=== PATIENT | male | born 1950 | race Caucasian/White ===

== ENCOUNTER 2019-09-16 12:38 | Day surgery (SDC) | payer MEDICARE ==
[~2019-09-16] VITALS: Ht 167.6 cm; Wt 67.4 kg
[~2019-09-16 12:38] MED LIST: CEPH500 PO; Daily Multiple1 EACH PO; HYDACE5 PO
[2019-09-16] MEDS ORDERED: ALLEGRA ALLERG180 MG (13:32)
--- NOTE | 2019-09-16 14:29 | NUR ---
09/16/19 1429 Fang Chaudhari INJECTED 20 MLS OF INDIGO CARMINE W/ NS PER DR ORDER FOR TWO POLYPECTOMIES.
== END 2019-09-16 16:00 | disposition home or self-care (01) ==
LOC: ORSCSDS 12:38
PROVIDERS: Student in an Organized Health Care Education/Training Program
PROC: 0DBK8ZX Excision of Ascending Colon, Via Natural or Artificial Opening Endoscopic, Diagnostic (ICD-10-PCS; principal; 2019-09-16 15:00)
PROC: 0DBH8ZX Excision of Cecum, Via Natural or Artificial Opening Endoscopic, Diagnostic (ICD-10-PCS; principal; 2019-09-16 15:00)
DX: Z12.11 Encounter for screening for malignant neoplasm of colon (principal); D12.0 Benign neoplasm of cecum; D12.2 Benign neoplasm of ascending colon; I10 Essential (primary) hypertension; E11.9 Type 2 diabetes mellitus without complications
CPT/HCPCS: 82947; 88305; J2405; J2704; J7030; J7120

== ENCOUNTER 2020-08-26 10:32 | Emergency (ER) | payer MEDICARE ==
[~2020-08-26] VITALS: Ht 167.6 cm; Wt 66.2 kg
[~2020-08-26 10:32] MED LIST changes: +ALLEGRA ALLERG180 MG; +LOSA50 PO
== END 2020-08-26 13:17 | disposition home or self-care (01) ==
LOC: ER 10:32
DX: U07.1 COVID-19 (principal); R50.9 Fever, unspecified; I10 Essential (primary) hypertension; Z88.2 Allergy status to sulfonamides; Z79.899 Other long term (current) drug therapy
CPT/HCPCS: 99282; A9270

== ENCOUNTER 2020-08-28 17:24 | Inpatient (IN) | payer MEDICARE ==
[~2020-08-28] VITALS: Ht 167.6 cm; Wt 71.5 kg
--- NOTE | 2020-08-28 | NUR ---
PT ADMITTED TO ROOM ICU 10 AT 2250 FROM ED. PT SLIDE TRANSFERRED TO BED. OXYGEN ON AT 8 LITERS PER MINUTE, AND AFTER PT SETTLED INTO BED, NOTED SATURATIONS MID 70 PERCENT. RESPIRATORY CARE PLACES PT TO BIPAP 12/6 FIO2 85 PERCENT. THIS BRINGS OXYGEN SATURATION > 90 PERCENT. PT MAINTAINS RESPIRATORY RATES 30'S TO 40'S. HE DOES STATE THAT HE IS FEELING BETTER WITH BIPAP. PT GOOD HISTORIAN. TEACHING DONE CONCERNING COVID 19. WILL REVIEW CHART AND PLAN OF CARE FOR THIS PT.
[2020-08-28 18:27] LABS: BASOPHILS ABSOLUTE AUTO 0.06 K/mm3 (0.00-0.23); BASOPHILS PERCENT AUTO 0 % (0-2); EOSINOPHILS ABSOLUTE AUTO 0.03 K/mm3 (0.00-0.68); EOSINOPHILS PERCENT AUTO 0 % (0-6); Hematocrit 43.3 % (37.0-53.0); Hemoglobin 14.9 g/dL (13.5-17.5); IMMATURE GRAN ABSOLUTE AUTO 0.18 K/mm3 (0.00-0.10); IMMATURE GRAN PERCENT AUTO 1 % (0-1); LYMPHOCYTES PERCENT AUTO 5 % (21-46); MONOCYTES ABSOLUTE AUTO 0.31 K/mm3 (0.16-1.47); MONOCYTES PERCENT AUTO 2 % (4-13); Mean Corpuscular HGB 29.3 pg (26.0-34.0); Mean Corpuscular HGB Conc 34.4 g/dL (31.5-36.5); Mean Corpuscular Volume 85 fL (80-100); Mean Platelet Volume 10.2 fL (9.1-12.4); NEUTROPHILS ABSOLUTE AUTO 13.43 K/mm3 (1.96-9.15); NEUTROPHILS PERCENT AUTO 91 % (41-73); Platelet Count 251 K/mm3 (150-400); RDW Coefficient Variation 12.7 % (11.7-14.2); RDW Standard Deviation 39.7 fL (35.1-46.3); Red Blood Cell Count 5.09 M/mm3 (4.30-5.90); White Blood Cell Count 14.81 K/mm3 (4.00-11.30)
[2020-08-28 18:49] LABS: Albumin, Blood 2.4 g/dL (3.4-5.0); Albumin/Globulin Ratio 0.5 (0.8-1.8); Bilirubin, Total 0.6 mg/dL (0.1-1.0); Bun/Creatinine Ratio 24.4 (12.0-20.0); Calcium, Blood 8.9 mg/dL (8.5-10.1); Creatinine, Blood 1.27 mg/dL (0.60-1.20); Globulin, Blood 4.6 g/dL (2.2-4.0); Potassium, Blood 3.3 mmol/L (3.5-5.5)
[2020-08-28 19:56] LABS: International Normalized Ratio 1.04; Prothrombin Time Results 11.1 Sec (9.7-11.5)
[2020-08-28 20:54] LABS: Appearance, Urine Hazy (Clear); Bilirubin, Urine Neg (Neg); Blood, Urine 2+ (Neg); Color, Urine Yellow (P-Yellow); Glucose Qualitative, Urine Neg (Neg); Ketones, Urine Neg (Neg); Leukocyte Esterase, Urine Neg (Neg); Nitrite, Urine Neg (Neg); Protein, Urine 2+ (Neg); Specific Gravity, Urine 1.015 (1.003-1.022); Urobilinogen, Urine 1+ (Normal)
[2020-08-28 21:05] LABS: Red Blood Cells, Urine 0-2 /hpf (0-2)
[2020-08-28 21:06] LABS: Amorphous Mod (0-Heavy); Squamous Epithelial Cells Not Seen /hpf (Few)
[2020-08-28 21:07] LABS: Bacteria Mod /hpf
[2020-08-28 22:20] LABS: IMMATURE RETIC FRACTION 4.2 % (2.3-16.0); RETIC HGB EQUIVALENT 30.4 pg (28.20-36.60); RETICULOCYTE ABSOLUTE 0.0292 M/mm3 (0.0200-0.1100); RETICULOCYTE COUNT PERCENT 0.62 % (0.50-2.50)
[2020-08-28] MEDS ORDERED: Aspir 8181 MG PO (23:14)
[2020-08-28] MEDS ORDERED: CENTRUM SILVER1 EAC2 PO (23:15)
[2020-08-29 01:33] LABS: Hematocrit 43.6 % (37.0-53.0); Hemoglobin 14.7 g/dL (13.5-17.5)
[2020-08-29 05:33] LABS: BASOPHILS ABSOLUTE AUTO 0.06 K/mm3 (0.00-0.23); BASOPHILS PERCENT AUTO 0 % (0-2); EOSINOPHILS PERCENT AUTO 0 % (0-6); Hematocrit 43.3 % (37.0-53.0); Hemoglobin 14.7 g/dL (13.5-17.5); IMMATURE GRAN ABSOLUTE AUTO 0.19 K/mm3 (0.00-0.10); IMMATURE GRAN PERCENT AUTO 1 % (0-1); LYMPHOCYTES ABSOLUTE AUTO 0.42 K/mm3 (0.84-5.20); LYMPHOCYTES PERCENT AUTO 3 % (21-46); MONOCYTES ABSOLUTE AUTO 0.29 K/mm3 (0.16-1.47); MONOCYTES PERCENT AUTO 2 % (4-13); Mean Corpuscular HGB 29.2 pg (26.0-34.0); Mean Corpuscular HGB Conc 33.9 g/dL (31.5-36.5); Mean Corpuscular Volume 86 fL (80-100); Mean Platelet Volume 10.5 fL (9.1-12.4); NEUTROPHILS ABSOLUTE AUTO 15.42 K/mm3 (1.96-9.15); NEUTROPHILS PERCENT AUTO 94 % (41-73); Platelet Count 275 K/mm3 (150-400); RDW Standard Deviation 40.6 fL (35.1-46.3); Red Blood Cell Count 5.04 M/mm3 (4.30-5.90); White Blood Cell Count 16.38 K/mm3 (4.00-11.30)
[2020-08-29 05:58] LABS: Anion Gap 6 mmol/L (6-16); Blood Urea Nitrogen 23 mg/dL (8-24); Bun/Creatinine Ratio 24.5 (12.0-20.0); CO2, Blood 24 mmol/L (21-32); Calcium, Blood 8.8 mg/dL (8.5-10.1); Chloride, Blood 107 mmol/L (98-108); Creatinine, Blood 0.94 mg/dL (0.60-1.20); Glomerular Filtration Rate >60 (60-); Glucose, Blood 179 mg/dL (70-99); Magnesium, Blood 2.6 mg/dL (1.6-2.4); Sodium, Blood 137 mmol/L (136-145)
--- NOTE | 2020-08-29 06:05 | NUR ---
PT HAS BEEN MAINTAINING > 90 PERCENT OXYGEN SATURATION ON BIPAP 09/20 WITH FIO2 85 PERECENT. PT REMAINS WITH RESPIRATORY RATES 30'S TO 40'S. HAS DRY COUGH WHICH PT STATES HAS BEEN IT WAS PRIOR TO ADMIT. VOIDS Q.S. NO S/S HEMATURIA. NO MELANA TO REPORT. PT REMAINS ALERT AND ORIENTED. PLEASANT AND COOPERATIVE WITH CARE AND ASSESSMENT. WILL CONTINUE TO MONITOR PT, AND WILL REPORT OFF TO ONCOMING RN.
--- NOTE | 2020-08-29 07:55 | NUR ---
ASSUMED CARE RECEIVED REPORT FROM NEGAR KAT. PT IS LYING IN BED ON THE BIPAP AT 12/6, 90% FIO2 WITH A RR OF 40. HOB 45%. PT IS ALERT AND ORIENTED X 4. HE IS IN SINUS TACH, RATE 119, WITH A STABLE BP. SPO2 IS 93%. BED LOW AND LOCKED. CALL LIGHT WITHIN REACH.
--- NOTE | 2020-08-29 08:26 | NUR ---
UPDATE PT NOW ON AIRVO, 60L, 92% FIO2 - SATing 92%. WILL CONTINUE TO MONITOR.
[2020-08-29 09:14] LABS: PO2 Arterial 53.2 mmHg (80-100); pH Blood Arterial 7.48 (7.35-7.45)
[2020-08-29 09:32] LABS: Anion Gap 8 mmol/L (6-16); Blood Urea Nitrogen 21 mg/dL (8-24); Bun/Creatinine Ratio 23.7 (12.0-20.0); CO2, Blood 24 mmol/L (21-32); Calcium, Blood 8.5 mg/dL (8.5-10.1); Chloride, Blood 110 mmol/L (98-108); Creatinine, Blood 0.89 mg/dL (0.60-1.20); Glomerular Filtration Rate >60 (60-); Glucose, Blood 173 mg/dL (70-99); Potassium, Blood 4.5 mmol/L (3.5-5.5); Sodium, Blood 142 mmol/L (136-145)
[2020-08-29 09:36] LABS: C-REACTIVE PROTEIN, EXT RANGE >19.000 mg/dL (0.000-0.300)
--- NOTE | 2020-08-29 13:00 | NUR ---
UPDATE: CONFUSION + INTUBATION PRECEDEX WAS STARTED AT 1020 DUE TO INCREASING ANXIETY, PT WAS VERY TACHYPNEIC WITH A RR IN THE LOW 40s. LATER ON I WALKED IN TO THE ROOM BECAUSE THE PATIENT HAD DESATT'ED AND THE PT WAS ASKING "WHEN ARE WE GOING TO GO TO MY ROOM?", WHEN ASKED WHAT HE MEANT, AND TOLD HE WAS IN HIS ROOM - HE SEEMED CONFUSED. BUT HE REMAINED ALERT AND ORIENTED X 4. SINCE THEN HE STARTED MOVING AROUND, FIDGITING, BECOMING FIXATED ON TRYING TO LOOK AT HIS MONITOR. HE KEPT TALKING EVEN THOUGH HIS O2 SATURATIONS WERE IN THE 77-83% RANGE, WE ASKED HIM TO FOCUS ON BREATHING, AND HE WOULD CONTINUE TO TALK AND SAY THINGS THAT DIDN'T MAKE COMPLETE SENSE. THE PRECEDEX WAS TURNED UP, AND 2 MG OF ATIVAN WAS GIVEN. HE PROCEEDED TO CALM DOWN, BUT REMAINED TACHYPNEIC (RR 35-43) AND HIS SATs WERE SUSTAINED AT 80-83%. I PLACED HIM BACK ON THE BIPAP, AND HE RECOVERED WELL, SATs LOW 90s. LUKE CAME TO THE ROOM AND DECIDED TO INTUBATE. EARLIER ON THE PT HAD AGREED TO RECEIVING A BREATHING TUBE AND PLACED ON THE VENTILATOR IF IT CAME TO IT. THE PT WAS DIAPHORETIC, TACHYCARDIC (HR 130-140) WELL TACHYPNEIC. HE RECEIVED ROCURONIUM AND ETOMIDATE AT 1203 FOR RSI, HE GOT A TOTAL OF 20 MG OF ETOMIDATE AND 30 MG OF ROCURONIUM. AT 1204 THE ETT WAS PLACED WITH POSITIVE COLOR CHANGE AND BILATERAL BREATH SOUNDS. IT WAS A 8.0 ETT, 24 @ TEETH. THE PT WAS THEN BAGGED AND TRANSFERRED TO ROOM 12. HE WAS PLACED ON THE VENTILATOR SHORTLY AFTER THAT AT AC 16/500/8/100%. CURRENTLY THE VENT SETTINGS ARE: AC16/450/10/90%. PT WILL BE NEEDING A PICC LINE FOR VASOPRESSORS HE IS REQUIRING MORE SEDATION, BUT HIS MAP IS SOFT, IN THE 55-65 RANGE. HE IS FEBRILE 101.3-102.3, A FAN IS ON HIMS, WELL ICE PACKS, AND THEN HE WILL BE GETTING TYLENOL PT. THE IS AWARE. BED IS LOW AND LOCKED. PT IS RESTRAINED. SCDs IN PLACE.
[2020-08-29 13:37] LABS: PO2 Arterial 61.6 mmHg (80-100); pH Blood Arterial 7.38 (7.35-7.45)
[2020-08-29 15:35] LABS: Source, Urine Catheter
[2020-08-29 15:58] LABS: Bilirubin, Urine Neg (Neg); Blood, Urine 2+ (Neg); Glucose Qualitative, Urine 1+ (Neg); Ketones, Urine Neg (Neg); Leukocyte Esterase, Urine Neg (Neg); Nitrite, Urine Neg (Neg); Protein, Urine 3+ (Neg); Urobilinogen, Urine 1+ (Normal)
[2020-08-29 16:35] LABS: Appearance, Urine Hazy (Clear); Color, Urine Yellow (P-Yellow)
[2020-08-29 16:36] LABS: Granular Casts 0-2 /lpf (0)
[2020-08-29 16:38] LABS: Amorphous Mod (0-Heavy); Bacteria Few /hpf; Squamous Epithelial Cells Not Seen /hpf (Few); White Blood Cells, Urine 0-2 /hpf (0-5)
--- NOTE | 2020-08-29 17:02 | NUR ---
UPDATE AFTER INTUBATION, VARIOUS VENT CHANGES, TURNING OFF PRECEDEX AND TITRATING UP ON PROPOFOL TO 45 MCG/KG/MIN, THE PT REMAINED HYPOTENSIVE, TACHYPNEIC, AND WAS NOT IN SYNCHRONY WITH THE VENT. DR. BUTLER ORDERED A 1 FLUID BOLUS, A PICC LINE INSERTION, LEVOPHED GTTP, AND A NIMBEX GTTP (WITH BIS MONITORING). PT IS NOW ON LEVOPHED AT 7 MCG/MIN, PROPOFOL AT 45 MCG/KG/MIN, NIMBEX AT 2 MCG/KG/MIN, AND NS TKO. THE PT'S BP IS STABLE AT AT THE MOMENT. NO CRACKLES AUSCULATED AFTER FLUID BOLUS. AFTER ABOUT 15 MINUTES OF NIMBEX, THE BIS MONITOR IS READING 43. PT APPEARS MORE IN SYNCH WITH THE VENT CURRENTLY, RR IS 27. VENT IS SET AT AC 20/450/12/80%. PT'S HEART RATE IS ALSO UNDER MORE CONTROL, SINUS RHYTHM AT 80-90s. PT CONTINUES TO BE DIAPHORETIC, BUT IT HAS IMPROVED SOME, ALONG WITH HIS TEMPERATURE (TEMP PEACOCK) WHICH IS NOW DOWN TO 100.9. CITY MAINTENANCE MANAGER IS CONSULTED TO START TUBE FEEDINGS. HE HAS A PEACOCK DRAINING YELLOW URINE (SO FAR ABOUT 100-150 ML). PT WAS SATURATED WITH URINE WHEN THE PEACOCK WAS INSERTED, SO THERE IS AN UNMEASURED VOID TO COUNT. NO BM. PT HAS GOOD PULSES, AND IS WARM TO TOUCH. HE IS NOT RESPONSIVE TO NOXIOUS STIMULI. BED LOW AND LOCKED.
--- NOTE | 2020-08-29 20:00 | NUR ---
ASSUMED CARE OF PT AT 1915. REPORT RECEIVED. PT PRESENTS IN BED - VENTED AC 20 Tv 450, FIO2 80%, PEEP 12. DISCUSSED PLAN OF CARE FOR PATIENT WITH RESPIRATORY CARE. WILL PRONE PATIENT NEAR 2029 THIS EVENING. PT ON 2 OF NIMBEX WITH 45 MCG'S PROPOFOL WITH BIS MONITORING MAINTAINING CONSISTANT 40-60. LEVOPHED ON AT 5 MCG'S. WILL TITRATE LEVOPHED IF ABLE. WILL REVIEW CHART AND PLAN OF CARE FOR THIS PT.
--- NOTE | 2020-08-29 23:00 | NUR ---
TEAM WAS ASSEMBLED AT 2030 AND PT WAS PRONED. PT'S OXYGEN SATURATIONS IMPROVED WELL BLOOD PRESSURES IMPROVING. DR VIZCAINO CALLS TO CHECK ON PT, AND UPDATE WAS GIVEN. DR VIZCAINO WANTS PT TO BE SUPINE AT 0230. ARRANGEMENTS TO BE MADE. PT'S CALLS AND CHECKS ON PT WELL. UPDATE GIVEN.
--- NOTE | 2020-08-30 03:53 | NUR ---
TEAM ASSEMBLED AT 0230 AND PT TURNED SUPINE. PT PASSIVELY TOLERATES THIS WELL. DR VIZCAINO PHONES TO CHECK ON PT AND HOW REPOSITIONING WENT, AND HOW PATIENT HAS TOLERATED THIS. UPDATE GIVEN. ORDERS RECEIVED IN REGARDS TO RESULT OF AM ABG. CONVEYED NEW ORDERS TO RESPIRATORY THERAPY. OF NOTE: PT'S LEVOPHED HAS BEEN ON STANDBY SINCE PT WAS PRONED NEAR 2029. NIMBEX AT 1.5 WHEREAS TRAIN OF FOUR PRESENT. BIS MONITORING AGAIN CONSISTANTLY MAINTAINING 40-60. VERY LITTLE SECRETIONS RETURNED WITH ETT SUCTIONING. PT AFEBRILE. WILL CONTINUE TO MONITOR.
[2020-08-30 04:42] LABS: BASOPHILS ABSOLUTE AUTO 0.06 K/mm3 (0.00-0.23); BASOPHILS PERCENT AUTO 0 % (0-2); EOSINOPHILS PERCENT AUTO 0 % (0-6); Hematocrit 40.9 % (37.0-53.0); Hemoglobin 13.6 g/dL (13.5-17.5); IMMATURE GRAN PERCENT AUTO 2 % (0-1); LYMPHOCYTES ABSOLUTE AUTO 0.69 K/mm3 (0.84-5.20); LYMPHOCYTES PERCENT AUTO 5 % (21-46); MONOCYTES ABSOLUTE AUTO 0.82 K/mm3 (0.16-1.47); MONOCYTES PERCENT AUTO 6 % (4-13); Mean Corpuscular HGB 29.2 pg (26.0-34.0); Mean Corpuscular HGB Conc 33.3 g/dL (31.5-36.5); Mean Corpuscular Volume 88 fL (80-100); Mean Platelet Volume 9.8 fL (9.1-12.4); NEUTROPHILS ABSOLUTE AUTO 12.67 K/mm3 (1.96-9.15); NEUTROPHILS PERCENT AUTO 87 % (41-73); Platelet Count 309 K/mm3 (150-400); RDW Coefficient Variation 13.4 % (11.7-14.2); RDW Standard Deviation 43.3 fL (35.1-46.3); Red Blood Cell Count 4.66 M/mm3 (4.30-5.90); White Blood Cell Count 14.54 K/mm3 (4.00-11.30)
[2020-08-30 05:03] LABS: Anion Gap 5 mmol/L (6-16); Blood Urea Nitrogen 23 mg/dL (8-24); Bun/Creatinine Ratio 33.3 (12.0-20.0); CO2, Blood 26 mmol/L (21-32); Calcium, Blood 8.5 mg/dL (8.5-10.1); Chloride, Blood 110 mmol/L (98-108); Creatinine, Blood 0.69 mg/dL (0.60-1.20); Glomerular Filtration Rate >60 (60-); Glucose, Blood 224 mg/dL (70-99); Magnesium, Blood 2.5 mg/dL (1.6-2.4); Phosphorus, Blood 3.8 mg/dL (2.5-4.9); Sodium, Blood 141 mmol/L (136-145); Troponin I <0.015 ng/mL (0.000-0.040)
[2020-08-30 05:08] LABS: PCO2 Arterial 43.5 mmHg (35-45); PO2 Arterial 107 mmHg (80-100); pH Blood Arterial 7.36 (7.35-7.45)
--- NOTE | 2020-08-30 05:23 | NUR ---
ABG DONE THIS AM REVEALS PH OF 7.36. NO CHANGES REQUIRED TO RR PER DR VIZCAINO. NO CHANGES IN PROPOFOL AT 45 MCG'S. NIMBEX AT 1.5. PT REMAINS SYNCHED WITH VENT, AND BIS MONITORING REMAINS BETWEEN 40 - 60. HAVE NOT REQUIRED TO RESTART LEVOPHED. SEE VITAL SIGN FLOWSHEET FOR DETAILS. WILL CONTINUE TO MONITOR PT, AND WILL REPORT OFF TO ONCOMING RN.
--- NOTE | 2020-08-30 07:53 | NUR ---
ASSUMED CARE RECEIVED REPORT FROM NEGAR PIMENTEL. PT IS LAYING ON HIS LEFT SIDE, INTUBATED WITH A 8.0 ETT, 23 AT THE TEETH; VENT SETTINGS ARE AC 20/450/12/50%, MINUTE VENT IS ~9.77 L/MIN. SPO2 IS 98% PEAK PRESSURES 27, PLATEAU 15. PT IS ON NIMBEX AT 1.5 MCG/KG/MIN AND IS IN COMPLETE SYNCH WITH VENT (RR 20). HE DOES NOT WITHDRAW TO NOXIOUS STIMULI, BUT DOES HAVE A NORMAL BABINSKI RESPONSE. HE IS SEDATED WITH PROPOFOL AT 45 MCG/KG/MIN; BIS IS SHOWING A READING OF 45. PT IN SINUS RHYTHM RATE 90s, STABLE BP (WITHOUT NEED FOR VASOPRESSORS). HE HAS A PATENT, TEMP PEACOCK DRAINING YELLOW URINE, TEMP OF 98.4. NO SCDs ON CURRENTLY. PT HAS AN OG TUBE HOOKED UP TO LIS. PT IS DIAPHORETIC. BED LOW AND LOCKED.
--- NOTE | 2020-08-30 11:23 | NUR ---
UPDATE DISCUSSED PLAN OF CARE WITH LUKE. PEEP IS NOW DOWN TO 10, FIO2 REMAINS 50, AND RR 20. SPO2 IS AT 93%. SHE WANTS TO TITRATE THE NIMBEX OFF, IF THE PT CAN TOLERATE THAT. I WENT DOWN TO 1 MCG/KG/MIN AT 1120. WILL CONTINUE TO MONITOR. PT IS VERY DIAPHORETIC AND EVEN AFTER BEING WIPED DOWN, WILL START SWEATING SHORTLY AFTER. PT'S TEMP IS 99.0. I PLACED THE FAN ON HIM FOR COMFORT, AND TURNED THE THERMASTAT DOWN. BED LOW AND LOCKED.
--- NOTE | 2020-08-30 15:48 | NUR ---
UPDATE CHANGES: -PEEP DECREASED TO 8 AT 1545 -AND FIO2 DECREASED TO 40% -PROPOFOL DOWN TO 40 MCG/KG/MIN 1550 SPO2 88-93%, RR ~25-30 PT IS AROUSABLE, WILL COUGH/GAG - BUT TOLERATES THE VENT CURRENTLY. HE CAN FOLLOW COMMANDS LIKE, SQUEEZING AND LETTING GO OF MY FINGERS, AND WIGGLING HIS TOES. HE HASN'T BEEN ABLE TO OPEN HIS EYES. HE CAN SHAKE HIS HEAD SLIGHTLY TO SAY "NO" TO A FEW QUESTIONS. HE DENIES PAIN. WHEN NOT STIMULATED HE FALLS BACK TO SLEEP. GRIMACING, SLIGHTLY TENSE, SO I GAVE SOME FENTANYL (50 MCG IVP) AND HE STARTED RIDING THE VENT (RR 20). WILL CONTINUE TO MONITOR. BED LOW AND LOCKED.
--- NOTE | 2020-08-30 19:00 | NUR ---
ASSUMED CARE NOTE: ASSUMED CARE OF PT AT 1900, RECEVIED REPORT FROM SHRADDHA BILLS. PT IS INTUBATED AND VENTED. VENT SETTINGS AC20/450/10/40%, SPO2 PROBE READING 93% CHANGED FINGER SPO2 PROBE TO FORHEAD PROBE. PT SEDATED WITH 40MCG/KG/MIN OF PROPOFOL, PT MOVING HEAD FROM SIDE TO SIDE, COUGHING, NOT TOLERATING VENT. PROPOFOL INCREASED FOR VENT TOLERANCE, SEE FLOW SHEET. PT IN SINUS TACH WITH HR AT 105 BPM. TUBE FEED RUNNING AT 35ML/HR, 5ML OF RESIDUAL NOTED. AYUSH WORKMAN, DRAINING TO GRAVITY. SEE COMPLETE ASSESSMENT. WILL CONTINUE TO MONITOR PT T/O SHIFT.
--- NOTE | 2020-08-30 19:15 | NUR ---
SHIFT SUMMARY PT IS INTUBATED ON VENT AT AC20/450/10/40%. THE PEEP HAD TO BE INCREASED FROM 8, THE PT WAS DESATing TO 83-86% WHICH MAINTAINED DESPITE SUCTIONING VIA INLINE CATHETER, AND REPOSITIONING. THE PT IS CLEAR BUT QUITE DIMINSHED THROUGHOUT. PT'S SPO2 IMPROVED TO 88-93% ON PEEP OF 8. RR IS 23-33; OR RIDING THE VENT AT 20 IF SEDATED MORE (FENTANYL PRN). PEAK AND PLATEAU PRESSURES ARE WNL, TILL HE STARTS COUGHING/GAGGING ON THE TUBE (AFTER BEING AROUSED BY NOXIOUS STIMULI). MINUTE VENTIALTION ~9-10 L/MIN. PT IS IN SINUS RHYTHM, RATE 80-90s, WITH STABLE BP, SOMETIMES HYPERTENSIVE. PROPOFOL IS INFUSING AT 40 MCG/KG/MIN. PT IS ADEQUATELY SEDATED, BUT QUICK TO AROUSE TO NOXIOUS STIMULI, AND WHEN STIMULATED WILL RESPOND TO VERBAL STIMULI. SEE PREVIOUS NOTE REGARDING NEURO STATUS. PT HAS A PATENT PEACOCK DRAINING ADEQUATE URINE OUTPUT. SCDs IN PLACE. PT SECURED TO SWB RESTRAINTS. HE IS ON HIS LEFT SIDE. PT HAS BEEN FEBRILE, 99.9-100.2; TYELNOL ELIXER GIVEN PER OG TUBE. TF WAS INCREASED TO 35 ML/HR, AT 1730. DUE TO BE INCREASED TO GOAL RATE AT 0130 TOMORROW IF RESIDUALS ARE NORMAL. RESIDUALS TODAY WERE MINIMAL AT 5-10 ML. NO BM TODAY. SOFT NONTENDER ABD. WAS UPDATED TODAY. THE BED IS LOW AND LOCKED.
[2020-08-31 03:55] LABS: Hematocrit 35.7 % (37.0-53.0); Mean Corpuscular HGB 29.6 pg (26.0-34.0); Mean Corpuscular HGB Conc 33.6 g/dL (31.5-36.5); Mean Corpuscular Volume 88 fL (80-100); Mean Platelet Volume 9.9 fL (9.1-12.4); Platelet Count 266 K/mm3 (150-400); RDW Coefficient Variation 13.5 % (11.7-14.2); RDW Standard Deviation 43.8 fL (35.1-46.3); Red Blood Cell Count 4.05 M/mm3 (4.30-5.90); White Blood Cell Count 10.16 K/mm3 (4.00-11.30)
[2020-08-31 04:19] LABS: Anion Gap 7 mmol/L (6-16); Blood Urea Nitrogen 26 mg/dL (8-24); Bun/Creatinine Ratio 37.6 (12.0-20.0); CO2, Blood 25 mmol/L (21-32); Calcium, Blood 7.9 mg/dL (8.5-10.1); Chloride, Blood 113 mmol/L (98-108); Creatinine, Blood 0.69 mg/dL (0.60-1.20); Glomerular Filtration Rate >60 (60-); Glucose, Blood 206 mg/dL (70-99); Magnesium, Blood 2.2 mg/dL (1.6-2.4); Phosphorus, Blood 2.7 mg/dL (2.5-4.9); Potassium, Blood 3.7 mmol/L (3.5-5.5); Sodium, Blood 145 mmol/L (136-145)
[2020-08-31 05:20] LABS: PCO2 Arterial 34.1 mmHg (35-45); PO2 Arterial 65.2 mmHg (80-100); pH Blood Arterial 7.48 (7.35-7.45)
--- NOTE | 2020-08-31 05:49 | NUR ---
SHIFT SUMMARY: NO SIGNIFICANT CHANGES. NO CHANGES TO THE VENT SETTINGS. PT ON PROPOFOL AT 60MCG/KG/MIN. PT HAVING COPIOUS AMOUNTS OF CARRILLO/ RED TINGED SECRETIONS. PT CONTINUES TO WITHDRAWAL FROM PAINFUL STIMULI,MOVE HEAD FROM SIDE TO SIDE AND GRIMICES DURING ORAL CARE. PT IN SINUS RYTHYM WITH HR IN THE 80'S. BP STABLE. TEMP 99.9, VIA TEMP PEACOCK. TUBE FEEDING RUNNING AT GOAL 45/ML HOUR. LAST RESIDUAL 40ML, REINSTILLED. NO SIGNS OF GI DISCOMFORT. NO BM THIS SHIFT. PEACOCK PATNET DRAINING TO GRAVITY, 750ML OUTPUT THIS SHIFT. PT REPOSITIONED Q2HRS. BED AT LOWEST LEVEL.
[2020-08-31 06:31] LABS: BAND PERCENT MAN 3 % (0-8); BASOPHILS PERCENT MAN 0 % (0-2); EOSINOPHILS PERCENT MAN 0 % (0-6); LYMPHOCYTES ABSOLUTE MAN 1.21 K/mm3 (0.84-5.20); LYMPHOCYTES PERCENT MAN 12 % (21-46); MONOCYTES ABSOLUTE MAN 0.81 K/mm3 (0.16-1.47); MONOCYTES PERCENT MAN 8 % (4-13); MYELOCYTE PERCENT MAN 2 % (0-0); NEUTROPHILS ABSOLUTE MAN 7.92 K/mm3 (1.96-9.15); SEG NEUTROPHILS PERCENT MAN 75 % (41-73); TOTAL CELLS COUNTED 100
--- NOTE | 2020-08-31 07:36 | NUR ---
ASSUMED CARE: RECEIVED REPORT FROM NOC RN. PT APPEARS TO BE SLEEPING ON THE VENT WITH EVEN CHEST RISE AND FALL DOES NOT APPEAR TO BE FIGHTING THE VENT AT THIS TIME. VSS ACCORDING TO THE MONITORS AT THIS TIME. WILL CONTINUE TO MONITOR AND ASSESS FURTHER.
--- NOTE | 2020-08-31 19:42 | NUR ---
ASSUMED CARE OF PT AT 1915. REPORT RECEIVED. PT PRESENTS IN BED - VENTED. AC 20, Tv 450, FIO2 45%, PEEP 10. PROPOFOL AT 45 MCG/KG/MIN. PRECEDEX AT 0.7/MCG/KG/HOUR. WILL ATTEMPT TO REDUCE PROPOFOL ABLE. WILL REVIEW CHART AND PLAN OF CARE FOR THIS PT.
--- NOTE | 2020-09-01 00:32 | NUR ---
FULL BEDBATH DONE FOR PT. HE TOLERATES THIS WELL. DOES DESATURATE WITH TURNS AND CURRENT VENT SETTINGS. PREOXYGENATED PT WITH 100 PERCENT OXYGEN. THIS WAS AFFECTIVE AT MAINTAINING SATURATIONS > 90 PERCENT. NO S/S ADVERSE REACTIONS TO ANTIVIRAL AND ANTIBIOTIC THERAPIES. WILL CONTINUE TO MONITOR PT.
[2020-09-01 01:25] LABS: Vancomycin, Trough 8.3 ug/mL (5.0-10.0)
[2020-09-01 05:16] LABS: Anion Gap 7 mmol/L (6-16); Blood Urea Nitrogen 29 mg/dL (8-24); Bun/Creatinine Ratio 51.3 (12.0-20.0); CO2, Blood 24 mmol/L (21-32); Calcium, Blood 8.1 mg/dL (8.5-10.1); Chloride, Blood 114 mmol/L (98-108); Creatinine, Blood 0.57 mg/dL (0.60-1.20); Glomerular Filtration Rate >60 (60-); Glucose, Blood 203 mg/dL (70-99); Magnesium, Blood 2.1 mg/dL (1.6-2.4); Phosphorus, Blood 2.7 mg/dL (2.5-4.9); Potassium, Blood 3.8 mmol/L (3.5-5.5); Sodium, Blood 145 mmol/L (136-145)
--- NOTE | 2020-09-01 05:55 | NUR ---
ATTEMPTED SEDATION VACATION THIS AM. PT BECOMES QUICKLY TACHYPNEIC, AND DESATURATES TO MID 80 PERCENTS. SUCTIONING FROM ETT RETURNS SMALL AMOUNT OF PEREZ COLORED SECRETIONS. PT PLACED BACK TO SEDATION WITH PROPOFOL AND WITH PRECEDEX. PT CURRENTLY RESTING. DID NEED TO INCREASE FIO2 TO 60 PERCENT. PT NOW MAINTAINING SATURATIONS > 90 PERCENT. HAS RUN LOW GRADE FEVER AND WAS MEDICATED WITH TYLENOL PER OGT. SEE VITAL SIGN FLOWSHEET FOR DETAILS. WILL CONTINUE TO MONITOR PT, AND WILL REPORT OFF TO ONCOMING RN.
--- NOTE | 2020-09-01 09:00 | NUR ---
PT A/O PT IS ABLE TO NOD YES AND SHAKE HIS HEAD NO. WHEN ASKED IF HE IS IN PAIN PT SHAKES HIS HEAD. PT NODDS HIS HEAD TO HAVING A DAUGHTER NAMED SALVADOR. PT NODDS HIS HEAD TO THE YEAR BEING 2019. PT IS ALSO NODDS HIS HEAD TO THIS RN GIVING PERMISSION TO TALK AND UPDATE THE DAUGHTER SALVADOR.
--- NOTE | 2020-09-01 14:24 | NUR ---
PEACOCK: PT WAS NOTED TO ONLY HAVE APPROX 100ML OF URINE IN COLLECTION BAG OF PEACOCK. EMPTIED THE BAG AND ASSESSED THE TUBING. PLACED PT IN REVERSE TRENDELENBERG IN ATTEMPTS TO EMPTY PT BLADDER OUT COMPLETELY. OBTAINED STERIL WATER AND FLUSHED CATHETER WITH APPROX 150 ML OF STERIL WATER. CURRENTLY THE UROMETER IS NOTED TO BE FULL AFTER ALREADY EMPTYING IT BEFORE LEAVING THE ROOM.
[2020-09-01 15:53] LABS: Source, Urine Catheter
[2020-09-01 16:10] LABS: Appearance, Urine Clear (Clear); Bilirubin, Urine Neg (Neg); Blood, Urine Neg (Neg); Color, Urine Yellow (P-Yellow); Glucose Qualitative, Urine Neg (Neg); Ketones, Urine Neg (Neg); Leukocyte Esterase, Urine Neg (Neg); Nitrite, Urine Neg (Neg); Protein, Urine 1+ (Neg); Urobilinogen, Urine 1+ (Normal)
--- NOTE | 2020-09-01 16:20 | NUR ---
VERBAL RELEASE: THE OF THE PT STATES TO DR HWANG SHE IS TO BE THE ONLY ONE TO GET INFORMATION REGARDING THE PT AND GIVES DR MARINO A PASS CODE OF [id number]. SHIFT MANAGER MAHESH LUO NOTIFIED OF THE SITUATION OF THE PT NODDING HEAD THIS MORNING TO ALLOW DAUGHTER SALVADOR TO BE UPDATED ON HIS STATUS. WILL DISCUSS WITH LITHOGRAPHIC PROOFER WELL.
--- NOTE | 2020-09-01 20:00 | NUR ---
ASSUMED CARE OF PT AT 1915. REPORT RECEIVED. PT PRESENTS IN BED. VENTED - AC 20, Tv 450, FIO2 45 %, PEEP 10. PT MAINTAINING SATURATIONS > 90 PERCENT. PROPOFOL CONTINUES AT 40 MCG'KG/MIN AND PRECEDEX AT 0.7 MCG'S/KG/HOUR. NOTE: PT'S TEMPERATURE INCREASING. 102.4. SPOKE WITH DR HWANG AND NEW BLOOD CULTURES TO BE DRAWN. ADMINISTERED TYLENOL. ICE PACKS APPLIED TO AXILLARY AND BEHIND NECK. FAN IN ROOM. PT AWAKENS TO TACTILE AND VERBAL STIMULI. NODS HEAD 'YES' AND 'NO' TO QUESTIONING. DENIES PAIN AND ACKNOWLEDGES HE IS FEELING FRUSTRATED. REASSURED PT AND GAVE SUPPORT. WILL REVIEW CHART AND PLAN OF CARE FOR THIS PT.
--- NOTE | 2020-09-01 23:35 | NUR ---
FULL BEDBATH COMPLETED. PT TOLERATES THIS WELL. PEACOCK HAS HAD 525 ML URINE OUT AT THIS POINT. THIS EMPTIED. WILL MONITOR FOR CLOGGING. PT'S FEVER HAS COME DOWN SOME WITH ICE, TYLENOL, AND FAN. SEE VS FLOWSHEET. PER RESIDUAL CHECK FROM OGT. 125 ML RETURNED. THIS REINFUSED. TUBE FEEDING AT GOAL. WILL CONTINUE TO MONITOR. NO S/S ADVERSE REACTIONS TO ANTIBIOTICS OR ANTIVIRALS TO NOTE.
--- NOTE | 2020-09-02 | NUR ---
PT HAS HAD A MUCH MORE STABLE NIGHT. VSS. HAS HAD LOW GRADE FEVER. PERSONAL FAN IN USE. SPOKE WITH PT'S ON TELEPHONE AND GAVE UPDATE. ALLOWED FOR QUESTIONS. NO S/S ADVERSE REACTIONS TO ANTIBIOTIC THERAPIES TO NOTE. WILL CONTINUE TO MONTIOR.
--- NOTE | 2020-09-02 01:03 | NUR ---
PT'S OXYGEN SATURATIONS HAVE DECREASED WHEREAS NEEDING TO INCREASE FIO2 TO 60 PERCENT. PT CURRENTLY WITH SATURATION 90-91 PERCENT. MINIMAL SECRETIONS WITH SUCTIONING. WILL CONTINUE TO MONITOR PT.
[2020-09-02 01:22] LABS: Vancomycin, Trough 10.3 ug/mL (5.0-10.0)
[2020-09-02 05:23] LABS: Hematocrit 37.7 % (37.0-53.0); Hemoglobin 12.2 g/dL (13.5-17.5); Mean Corpuscular HGB 28.9 pg (26.0-34.0); Mean Corpuscular HGB Conc 32.4 g/dL (31.5-36.5); Mean Corpuscular Volume 89 fL (80-100); Mean Platelet Volume 10.4 fL (9.1-12.4); Platelet Count 261 K/mm3 (150-400); RDW Coefficient Variation 13.7 % (11.7-14.2); RDW Standard Deviation 45.5 fL (35.1-46.3); Red Blood Cell Count 4.22 M/mm3 (4.30-5.90); White Blood Cell Count 18.42 K/mm3 (4.00-11.30)
[2020-09-02 05:39] LABS: Anion Gap 7 mmol/L (6-16); Blood Urea Nitrogen 22 mg/dL (8-24); Bun/Creatinine Ratio 38.5 (12.0-20.0); CO2, Blood 25 mmol/L (21-32); Chloride, Blood 114 mmol/L (98-108); Creatinine, Blood 0.57 mg/dL (0.60-1.20); Glomerular Filtration Rate >60 (60-); Glucose, Blood 151 mg/dL (70-99); Magnesium, Blood 2.1 mg/dL (1.6-2.4); Phosphorus, Blood 3.7 mg/dL (2.5-4.9); Sodium, Blood 146 mmol/L (136-145)
--- NOTE | 2020-09-02 06:41 | NUR ---
SEDATION VACATION DONE THIS MORNING. PT MEDICATED WITH 50 MCG FENTANYL DURING SEDATION. PT DID HAVE PERIOD WHERE HE BECOMES VERY ANXIOUS AND TACHYPNEIC. WAS ABLE TO REDIRECT AND CALM PT BY TALKING WITH HIM. PT BACK TO SEDATION. VENT AC 20, Tv 450, FIO2 70% PEEP 10. WILL CONTINUE TO MONITOR PT, AND WILL REPORT OFF TO ONCOMING RN.
--- NOTE | 2020-09-02 07:31 | NUR ---
ASSUMED CARE RECEIVED REPORT FROM NEGAR KAT. PT IS LYING ON HIS RIGHT SIDE, INTUBATED WITH AN 8.0 ETT, 23 AT THE TEETH, ON VENT: AC20/450/10/70% -- SAT'ing AT 86-88%. PROPOFOL AT 55 MCG/KG/MIN, PRECEDEX AT 0.7 MCG/KG/HR AND NS TKO. PT IS CALM AND SEDATED. SINUS RHYTHM, RATE IN THE 80s. STABLE BP (MAP > 60). RR IN THE 20-30s. PATENT PEACOCK DRAINING YELLOW URINE. SCDs IN PLACE. SWB RESTRAINTS SECURED TO PT AND BED. BED LOW AND LOCKED.
--- NOTE | 2020-09-02 07:47 | NUR ---
UPDATE PT MAINTAING SATs IN 85-88%, REPOSITIONED THE PT TO SUPINE, RAISED THE HEAD OF THE BED SLIGHTLY, AND INCREASED THE FIO2 TO 75%. SATs 88-90%.
--- NOTE | 2020-09-02 08:05 | NUR ---
UPDATE PT DESATING MAYELA THE 77-85% RANGE, FIO2 UP TO 100% WITH LITTLE CHANGE. CALLED DR. TOLEDO - [place] TO INCREASE PEEP TO 12, AND KEEP FIO2 AT 100%, AND TO INCREASE SEDATION. PT'S RR IS IN THE 30s. PT IS NOT MOVING AROUND, OR FOLLOWING COMMANDS. HE APPEARS SEDATED. WILL CONTINUE TO MONITOR.
--- NOTE | 2020-09-02 09:10 | NUR ---
UPDATE NOT MUCH IMPROVEMENT FROM INCREASE IN PEEP, AND FIO2 - AT LEAST NOT WITHIN THE FIRST 15 MINUTES. PT WAS REPOSITIONED TO HIS LEFT SIDE AT 0820, AND WITHIN MINUTES THE PT'S SATs INCREASED INTO THE 90-97% RANGE. PEEP REMAINS AT 12, AND FIO2 IS NOW DOWN TO 90%. RR IS 26. PEAK PRESSURES AND TIDAL VOLUMES ARE WNL. WILL CONTINUE TO MONITOR.
--- NOTE | 2020-09-02 12:41 | NUR ---
UPDATE-PRONE PRONED PT WITH HELP OF SEVERAL RN. VENT SETTINGS REMAIN THE SAME. PT GIVEN 50 MCG OF FENT. PT IS CALM, SEDATED, AND SATing 93%. DR. TOLEDO WANTS TO REEVALUATE PRONING AT 1600. WILL CONTINUE TO MONITOR.
--- NOTE | 2020-09-02 19:21 | NUR ---
SHIFT SUMMARY PT STARTED OUT DAY ing INTO THE 77-85% RANGE, BUT AFTER INCREASE IN PEEP, FIO2 AND POSITIONING (WENT TO THE LEFT SIDE) HE IMPROVED TO THE 88-93%. HIS VENT SETTINGS AT THE TIME WERE AC20/450/12/100%. AT 1215 WE PRONED THE PT, WHICH HE TOLERATED WELL - SATs WERE MAINTAINED IN THE 93-100% RANGE. FIO2 CAME DOWN TO 70% OVER TIME, AND PEEP BACK DOWN TO 10. SATs REMAINED ~93-96%. AT 1745 THE PT WAS REPOSITIONED BACK TO SUPINE, AND ON HIS LEFT SIDE. SATS ARE NOW BEING MAINTAINED AT 93-96%. VENT REMAINS AT AC 20/450/10/70%, SEDATION: PROPOFOL AT 50 MCG/KG/MIN, AND PRECEDEX AT 1.4 MCG/KG/HR. THE PLAN WILL BE TO PRONE AGAIN TOMORROW, AND TO KEEP THE PEEP AT 10 OVERNIGHT - PER DR. TOLEDO. PT HAD MINIMAL RESIDUALS (~10 ML OF FORMULA). TF IS VHP AND IS AT GOAL AT 45 ML/HR WITH Q4H 30 ML WATER FLUSHES. PT IS RESTRAINED WITH SWB. PT HAS A PATENT PEACOCK, DRAINING YELLOW URINE, PT HAD ADEQUATE URINE OUTPUT. SCDs IN PLACE. BED IS LOW AND LOCKED. DAUGHTER AND HAVE BEEN UPDATED ON PT'S CONDITION.
--- NOTE | 2020-09-02 20:00 | NUR ---
ASSUMED CARE OF PT AT 1915. REPORT RECEIVED. PT PRESENTS IN BED. VENTED- AC 20 Tv 450, FIO2 65%, PEEP 10. PT ON PRECEDEX DRIP AT 1.4 MCG'S/KG/HOUR AND PROPOFOL 50 MCG'S/KG/MIN. PT IN NO APPARENT DISTRESS. WILL REVIEW CHART AND PLAN OF CARE FOR THIS PT.
--- NOTE | 2020-09-03 | NUR ---
FULL BEDBATH DONE. PT TOLERATES THIS WELL. HAVE SMALL AMOUNT OF WHITE SECRETIONS FROM ETT. AFEBRILE. HAS TOLERATED Q 2 HOUR TURNS IN BED. HAVE TITRATED PROPOFOL DOWN TO 45 MCG. PRECEDEX NOW TO 1.2MCG'S. THIS KEEPS PT AT SAS OF 3-4.
[2020-09-03 04:00] LABS: Hematocrit 36.4 % (37.0-53.0); Hemoglobin 11.9 g/dL (13.5-17.5); Mean Corpuscular HGB 29.3 pg (26.0-34.0); Mean Corpuscular HGB Conc 32.7 g/dL (31.5-36.5); Mean Corpuscular Volume 90 fL (80-100); Mean Platelet Volume 10.6 fL (9.1-12.4); Platelet Count 259 K/mm3 (150-400); RDW Coefficient Variation 13.6 % (11.7-14.2); RDW Standard Deviation 44.8 fL (35.1-46.3); Red Blood Cell Count 4.06 M/mm3 (4.30-5.90); White Blood Cell Count 19.51 K/mm3 (4.00-11.30)
[2020-09-03 04:12] LABS: Anion Gap 6 mmol/L (6-16); Blood Urea Nitrogen 28 mg/dL (8-24); Bun/Creatinine Ratio 49.5 (12.0-20.0); CO2, Blood 28 mmol/L (21-32); Calcium, Blood 8.3 mg/dL (8.5-10.1); Chloride, Blood 111 mmol/L (98-108); Creatinine, Blood 0.57 mg/dL (0.60-1.20); Glomerular Filtration Rate >60 (60-); Glucose, Blood 202 mg/dL (70-99); Potassium, Blood 3.8 mmol/L (3.5-5.5); Sodium, Blood 145 mmol/L (136-145)
[2020-09-03 04:26] LABS: BAND PERCENT MAN 7 % (0-8); BASOPHILS PERCENT MAN 0 % (0-2); EOSINOPHILS ABSOLUTE MAN 0.58 K/mm3 (0.00-0.68); EOSINOPHILS PERCENT MAN 3 % (0-6); LYMPHOCYTES ABSOLUTE MAN 1.56 K/mm3 (0.84-5.20); LYMPHOCYTES PERCENT MAN 8 % (21-46); MONOCYTES ABSOLUTE MAN 0.39 K/mm3 (0.16-1.47); MONOCYTES PERCENT MAN 2 % (4-13); NEUTROPHILS ABSOLUTE MAN 16.97 K/mm3 (1.96-9.15); SEG NEUTROPHILS PERCENT MAN 80 % (41-73); TOTAL CELLS COUNTED 100
--- NOTE | 2020-09-03 06:23 | NUR ---
PT HAS HAD <60 ML RESIDUAL FROM OGT WITH TUBE FEEDING AT GOAL. PT HAS SEDATION VACATION DONE THIS AM, AND WAS CALM THROUGHOUT. DID HAVE SOME EPISODES OF COUGHING THAT WOULD SELF CORRECT. PT MEDICATED WITH 50 MCG FENTANYL APPROX 20 MINUTES INTO VACATION. THIS WAS AFFECTIVE. SMALL AMOUNTS OF LIGHT COLORED SECRETIONS RETURNED FROM ETT. PT HAS TEMP 102.4 AND WAS MEDICATED WITH TYLENOL. PENDING RESULTS. DR TOLEDO HAS BEEN IN UNIT AND HAS BEEN UPDATED ON PTS STATUS. WILL CONTINUE TO MONITOR PT, AND WILL REPORT OFF TO ONCOMING RN.
--- NOTE | 2020-09-03 10:05 | NUR ---
CARE ASSUMED CARE AND REPORT ASSUMED FROM SHEY BILLS. PT INTUBATED AND SEDATED ON VENT AC 20, TV 450, PEEP 10, FIO2 65%. LUNG SOUNDS CLEAR BUT DIMINISHED IN BASES. PT SEDATED WITH PROPOFOL GTT AT 50 MCG AND PRECEDEX 1.2 MCG. HE DOES BITE AND FIGHT AGAINST ORAL CARE. BUE RESTRAINED. OGT SECURED WITH VHP AT GOAL RATE 45 ML/HR; RESIDUALS 110 ML. PEACOCK CATH SECURED AND PATENT. TEMP 100.4; ROOM TEMP DECREASED AND BLANKETS OFF. NSR, HR 90-110. ETT SECUREMENT DEVICE CHANGED WITH RT. WILL PRONE PT. WILL CONTINUE TO MONITOR.
--- NOTE | 2020-09-03 12:43 | NUR ---
REASSESSMENT PT REPOSITIONED PRONE AT 1030. HE REMAINS PRONE AT THIS TIME. VENT AC 20, TV 450, PEEP 10, FIO2 DOWN TO 60%. NO CHANGE IN LUNG SOUNDS. PROPOFOL GTT REMAINS AT 50 MCG AND PRECEDEX GTT REMAINS AT 1.2 MCG. PT RESTRAINED. PRODUCING LARGE AMOUNTS OF ORAL SECRETIONS. TYLENOL GIVEN PER TUBE FOR TEMP 100.4. WILL CONTINUE TO MONITOR.
--- NOTE | 2020-09-03 16:49 | NUR ---
REASSESSMENT PT REMAINS ON VENT AND SEDATED. NO VENT CHANGES EXCEPT FIO2 DOWN TO 50%. NO CHANGE IN LUNG SOUNDS. PT ROTATED BACK TO SUPINE POSITION AT 1630 AND TOLERATED WELL. HOB ELEVATED AND PT NOW ON HIS SIDE. HE DID HAVE MODERATE AMOUNTS OF NASAL DRAINAGE. ETT SECURE. TUBE FEEDINGS RESTARTED THROUGH OGT; INFUSING AT 45 ML/HR. PEACOCK CATH SECURED. PROPOFOL GTT INFUSING AT 50 MCG AND PRECEDEX GTT INFUSING AT 1.2 MCG. TUBE FEEDING FORMULA REPLACED THIS AFTERNOON. BUE RESTRAINED. TEMP DECREASED. WILL CONTINUE TO MONITOR.
--- NOTE | 2020-09-03 18:57 | NUR ---
SHIFT SUMMARY PT INTUBATED AND SEDATED ENTIRE SHIFT. REMAINED ON PROPOFOL GTT AT 50 MCG AND PRECEDEX GTT AT 1.2 MCG ENTIRE SHIFT. WAS PRONED FOR TOTAL OF 6 HOURS TODAY AND TOLERATED WELL. FIO2 DOWN FROM 70% TO 50%. AND DAUGHTER UPDATED ON PHONE. TUBE FEEDS STOPPED WHEN PRONED; RESTARTED AT 1700. HAS REMAINED IN NSR WITH STABLE BP ENTIRE SHIFT. TYLENOL 650 MG GIVEN PER TUBE ONE TIME. WILL GIVE BEDSIDE, HANDOFF REPORT TO ROBERT RN.
--- NOTE | 2020-09-03 20:00 | NUR ---
ASSUMED CARE OF PT AT 1915. RECEIVED REPORT. PT PRESENTS IN BED. VENTED. MAINTAINING OXYGEN SATURATION > 90 PERCENT. PROPOFOL AT 50 MCG'S AND PRECEDEX AT 1.4. NO S/S DISTRESS AT THIS TIME. WILL REVIEW CHART AND PLAN OF CARE FOR THIS PT.
[2020-09-04 05:52] LABS: BASOPHILS ABSOLUTE AUTO 0.09 K/mm3 (0.00-0.23); BASOPHILS PERCENT AUTO 1 % (0-2); EOSINOPHILS ABSOLUTE AUTO 0.25 K/mm3 (0.00-0.68); EOSINOPHILS PERCENT AUTO 1 % (0-6); Hematocrit 36.4 % (37.0-53.0); Hemoglobin 11.5 g/dL (13.5-17.5); IMMATURE GRAN ABSOLUTE AUTO 0.68 K/mm3 (0.00-0.10); IMMATURE GRAN PERCENT AUTO 3 % (0-1); LYMPHOCYTES ABSOLUTE AUTO 1.88 K/mm3 (0.84-5.20); LYMPHOCYTES PERCENT AUTO 9 % (21-46); MONOCYTES ABSOLUTE AUTO 0.72 K/mm3 (0.16-1.47); MONOCYTES PERCENT AUTO 4 % (4-13); Mean Corpuscular HGB 28.7 pg (26.0-34.0); Mean Corpuscular HGB Conc 31.6 g/dL (31.5-36.5); Mean Corpuscular Volume 91 fL (80-100); Mean Platelet Volume 10.2 fL (9.1-12.4); NEUTROPHILS ABSOLUTE AUTO 16.38 K/mm3 (1.96-9.15); NEUTROPHILS PERCENT AUTO 82 % (41-73); Platelet Count 290 K/mm3 (150-400); RDW Coefficient Variation 13.5 % (11.7-14.2); RDW Standard Deviation 45.6 fL (35.1-46.3); Red Blood Cell Count 4.01 M/mm3 (4.30-5.90)
--- NOTE | 2020-09-04 05:55 | NUR ---
PT HAS BEGUN TO HAVE INCREASING TEMP. 101.4 AFTER SEDATION VACATION THIS AM. PT ABLE TO FOLLOW COMMANDS AND NOD HEAD 'YES' AND 'NO' TO QUESTIONS. DENIES PAIN. DID MEDICATE PT WITH 25 MCG'S FENATNYL DURING SEDATION VACATION. HAVE RETURNED MODERATE AMOUNT OF CLEAR WHITE SECRETIONS THIS AM WITH SUCTIONING. TUBE FEEDING CONTINUES AT GOAL. WILL CONTINUE TO MONITOR PT AND WILL REPORT OFF TO ONCOMING RN.
[2020-09-04 06:28] LABS: Anion Gap 6 mmol/L (6-16); Blood Urea Nitrogen 34 mg/dL (8-24); Bun/Creatinine Ratio 51.8 (12.0-20.0); CO2, Blood 28 mmol/L (21-32); Calcium, Blood 8.6 mg/dL (8.5-10.1); Chloride, Blood 113 mmol/L (98-108); Creatinine, Blood 0.66 mg/dL (0.60-1.20); Glomerular Filtration Rate >60 (60-); Glucose, Blood 174 mg/dL (70-99); Potassium, Blood 3.6 mmol/L (3.5-5.5); Sodium, Blood 147 mmol/L (136-145)
--- NOTE | 2020-09-04 07:30 | NUR ---
ASSUMED CARE REPORT RECIEVED. PT IS INTUBATED AND SEDATED. PT VENT SETTINGS AC 20, TV 450, PEEP 10, FIO2 45%. PT IS SEDATED WITH PRECEDEX AND PROPOFOL. PT IS RESTLESS AND BREATHSTACKING THE VENT. PT WITH EYES OPEN, DOES NOT FOLLOW COMMANDS. PT MOVING ALL EXTREMITIES. SBW RESTRAINTS IN PLACE. VITAL SIGNS STABLE. OGT IN PLACE WITH TF INFUSING AT 45 ML/HR GOAL RATE. PICC TO PATITO C/D/I. LEFT ARM WITH MORE SWELLING THAN RIGHT SIDE. PICC FLUSHES AND DRAWS BACK WELL. PEACOCK TEMP PROBE IN PLACE DRAINING CLEAR YELLOW URINE. WILL CONTINUE TO MONITOR.
[2020-09-04 11:03] LABS: Source, Urine Catheter
[2020-09-04 11:10] LABS: Appearance, Urine Clear (Clear); Bilirubin, Urine Neg (Neg); Blood, Urine Neg (Neg); Color, Urine Yellow (P-Yellow); Glucose Qualitative, Urine Neg (Neg); Ketones, Urine Neg (Neg); Leukocyte Esterase, Urine Neg (Neg); Nitrite, Urine Neg (Neg); Protein, Urine 1+ (Neg); Urobilinogen, Urine 1+ (Normal)
--- NOTE | 2020-09-04 17:32 | NUR ---
SHIFT SUMMARY NO ACUTE CHANGES THIS SHIFT. PT REMAINS INTUBATED AND SEDATED. VENT SETTINGS REMAIN AC 20, TV 450, PEEP 10, FIO2 40%. PT SEDATED WITH PROPOFOL AT 60 MCG/KG/MIN AND PRECEDEX AT 1.4 MCG/KG/MIN. PT MED WITH FENTANYL PRN FOR SEDATION ADJUNCT. PT CONTINUES TO MOVE ALL EXTREMITIES SPONTANEOUSLY. SBW RESTRAINTS REMAIN IN PLACE. PT PRONED THIS AFTERNOON FOR ALMOST 6 HOURS. PT TOLERATED WELL. OGT REMAINS IN PLACE, TF ON STANDBY WHILE PRONED. TF RESUMED AT 55 ML/HR GOAL RATE WHEN UNPRONED. PICC TO PATITO REMAINS C/D/I. NS INFUSING TKO AND LEVOPHED AT 2 MCG/MIN. PEACOCK TEMP PROBE REMAINS IN PLACE WITH YELLOW URINE OUTPUT NOTED. PT LEFT ARM REMAINS SWOLLEN, BUT UNCHANGED FROM THIS AM. VITAL SIGNS HAVE REMAINED STABLE. WILL CONTINUE TO MONITOR AND REPORT OFF TO ONCOMING RN.
--- NOTE | 2020-09-04 19:15 | NUR ---
ASSUMED CARE OF PT, HE IS NOTED INTUBATED AND SEDATED, PROPOFOL AT 60 MCG/KG/MIN, PRECEDEX AT 1.4 MCG/KG/HR, VENT SETTINGS AC 20, TV 450, PEEP 10, FIO2 40%, CURRENT RESP RATE 21/MIN, 8.0 ETT, 24 CM AT TEETH, LUNGS ARE CLEAR THROUGHOUT, BASES DIM BILAT, EXP RUB TO RIGHT LOWER LOBE, WILL MONITOR, SATS UPPER 90S. HRR, SINUS ON MONITOR, RATE 90S AT THIS TIME, PRESSURE IS MAINTAINING WITH LEVOPHED AT 2 MCG/MIN, WILL MONITOR AND TITRATE LEVOPHED NEEDED, PULSES ARE FULL X 4 EXTREMITIES, BRISK CAP REFILL NOTED, MODERATE EDEMA TO LEFT UPPER EXTREMITY, TRACE TO BILAT FEET, NON-PITTING. OG IN PLACE, JEVITY 1.0 AT GOAL RATE OF 55 ML/HR, PT TOLERATING WELL, HYPOACTIVE BOWEL TONES ARE NOTED HOWEVER RESIDUAL IS ONLY 10 ML AT THIS TIME, FREE WATER FLUSH OF 30 ML EVERY 4 HOURS, ABD IS SOFT, NO GRIMACING TO PALPATION. TEMP PROBE PEACOCK REMAINS IN PLACE DRAINING CLEAR YELLOW URINE. PT DOES OPEN EYES WITH ORAL CARE, GRIMACING IS NOTED, HE WITHDRAWS HANDS AND FEET FROM NOXIOUS STIMULI OTHERWISE IS NOTED TO BE RESTING QUIETLY WITHOUT GRIMACING OR AGITATION. WILL MONITOR.
[2020-09-05 03:36] LABS: Base Excess Venous 3.5 mmol/L; PCO2 Venous 42.7 mmHg (38-42); PO2 Venous 55.3 mmHg (38-42); pH Blood Venous 7.42 (7.34-7.37)
[2020-09-05 03:40] LABS: BASOPHILS ABSOLUTE AUTO 0.05 K/mm3 (0.00-0.23); BASOPHILS PERCENT AUTO 0 % (0-2); EOSINOPHILS ABSOLUTE AUTO 0.23 K/mm3 (0.00-0.68); EOSINOPHILS PERCENT AUTO 2 % (0-6); Hematocrit 33.5 % (37.0-53.0); Hemoglobin 10.9 g/dL (13.5-17.5); IMMATURE GRAN ABSOLUTE AUTO 0.34 K/mm3 (0.00-0.10); IMMATURE GRAN PERCENT AUTO 2 % (0-1); LYMPHOCYTES ABSOLUTE AUTO 1.62 K/mm3 (0.84-5.20); LYMPHOCYTES PERCENT AUTO 10 % (21-46); MONOCYTES ABSOLUTE AUTO 0.77 K/mm3 (0.16-1.47); MONOCYTES PERCENT AUTO 5 % (4-13); Mean Corpuscular HGB 29.7 pg (26.0-34.0); Mean Corpuscular HGB Conc 32.5 g/dL (31.5-36.5); Mean Corpuscular Volume 91 fL (80-100); Mean Platelet Volume 10.4 fL (9.1-12.4); NEUTROPHILS PERCENT AUTO 81 % (41-73); Platelet Count 335 K/mm3 (150-400); RDW Coefficient Variation 13.7 % (11.7-14.2); RDW Standard Deviation 46.3 fL (35.1-46.3); Red Blood Cell Count 3.67 M/mm3 (4.30-5.90); White Blood Cell Count 15.61 K/mm3 (4.00-11.30)
[2020-09-05 03:55] LABS: Anion Gap 5 mmol/L (6-16); Blood Urea Nitrogen 34 mg/dL (8-24); Bun/Creatinine Ratio 51.4 (12.0-20.0); CO2, Blood 29 mmol/L (21-32); Calcium, Blood 8.3 mg/dL (8.5-10.1); Chloride, Blood 116 mmol/L (98-108); Creatinine, Blood 0.66 mg/dL (0.60-1.20); Glomerular Filtration Rate >60 (60-); Glucose, Blood 162 mg/dL (70-99); Magnesium, Blood 2.4 mg/dL (1.6-2.4); Phosphorus, Blood 3.5 mg/dL (2.5-4.9); Potassium, Blood 3.6 mmol/L (3.5-5.5); Sodium, Blood 150 mmol/L (136-145)
--- NOTE | 2020-09-05 08:00 | NUR ---
ASSUMED CARE REPORT RECIEVED. PT IS LAYING IN BED INTUBATED AND SEDATED. VENT SETTINGS AC 20, TV 450, PEEP 10, FIO2 40%. PT WITH MINIMAL ETT SECRETIONS WITH SUCTION. PT SEDATED WITH PROPOFOL AT 60 MCG/KG/MIN AND PRECEDEX AT 1.3 MCG/KG/HR. PICC TO PATITO C/D/I WITH NS INFUSING TKO. LEFT UPPER ARM WITH SWELLING NOTED. DISTAL PULSES PRESENT. OGT IN PLACE WITH TF AT GOAL RATE. PEACOCK TEMP PROBE IN PLACE WITH CLEAR YELLOW URINE OUTPUT NOTED. SBW RESTRAINTS IN PLACE. PT MOVES ALL EXTREMITIES SPONTANEOUSLY. PT AWAKENS QUICKLY WITH PROPOFOL ON STANDBY FOR SEDATION VACATION. PT DOES NOT FOLLOW COMMANDS OR ATTEMPT TO COMMUNICATE. PT STARES UP AT CEILING, DOES NOT TRACK WHILE IN ROOM. VITAL SIGNS STABLE. WILL CONTINUE TO MONITOR.
[2020-09-05 11:33] LABS: Vancomycin, Trough 15.4 ug/mL (5.0-10.0)
--- NOTE | 2020-09-05 17:16 | NUR ---
SHIFT SUMMARY NO ACUTE CHANGES THIS SHIFT. PT HAS REMAINED INTUBATED AND SEDATED. VENT SETTINGS REMAIN AC 20, TV 450, PEEP 10, FIO2 35%. PT PRONED THIS SHIFT FOR 5 HOURS, PT TOLERATED WELL. PT WITH MINIMAL ETT SECRETIONS WITH SUCTION. PICC TO PATITO REMAINS C/D/I. LEFT ARM REMAINS WITH SWELLING UNCHANGED. ARM MEASURED AT MARKED LINE AT 36.[address] HWANG AWARE OF SWELLING. PT REMAINS SEDATED WITH PROPOFOL AT 60 MCG/KG/MIN AND PRECEDEX AT 1.4 MCG/KG/HR. NS INFUSING TKO. OGT IN PLACE WITH TF OFF FOR PRONING, THEN RESUMED AT 55 ML/HR. MINIMAL RESIDUALS NOTED. PEACOCK TEMP PROBE IN PLACE WITH YELLOW URINE OUTPUT NOTED. SBW RESTRAINTS REMAIN IN PLACE. PT FAMILY UPDATED VIA PHONE TODAY. VITAL SIGNS REMAIN STABLE. WILL CONTINUE TO MONITOR AND REPORT OFF TO ONCOMING RN.
--- NOTE | 2020-09-05 19:00 | NUR ---
ASSUMED CARE OF PT, PT REMAINS INTUBATED AND SEDATED, PROPOFOL INFUSING AT 60 MCG/KG/MIN, PRECEDEX INFUSING AT 1.4 MCG/KG/HR, NS AT TKO FOR ANTIBIOTIC INFUSIONS. VENT SETTINGS ARE NOTED TO HAVE FIO2 DECREASED TO 35% AND RT TO DECREASE PEEP TO 8.0, PT SATS ARE CURRENTLY MAINTAINING LOW 90S. HRR, SINUS NOTED ON MONITOR, PRESSURES MAINTAINING, LEVOPHED REMAINS ON STANDBY THROUGHOUT DAY SHIFT. EDEMA TO LEFT ARM CONTINUES, ARM MEASURES 13 INCHES AROUND AT MARKED LINE, PULSE REMAINS FULL WITH BRISK CAP REFILL, SKIN IS PWD. VITAL HIGH PROTEIN CONTINUES AT GOAL OF 55 ML/HR WHEN PT IS NOT PRONED WITH MINIMAL RESIDUALS. TEMP PROBE PEACOCK CONTINUES TO DRAIN CLEAR YELLOW URINE AND LOW GRADE FEVER CONTINUES. PT DOES OPEN EYES TO STATED NAME HOWEVER DOES NOT FOLLOW COMMANDS AT THIS TIME. PLAN TO CONT FREQUENT REPOSITIONING, PLAN TO MAINTAIN SATS [address] HWANG. PLAN TO TITRATE SEDATION DOWN PT TOLERATES, WILL ADMINISTER TYLENOL WITH HS MEDS AND MONITOR FOR EFFECT.
--- NOTE | 2020-09-06 00:45 | NUR ---
PICC ASSESSMENT EDEMA TO LEFT UPPER ARM HAS INCREASED ARM CIRCUMFERENCE FROM 13 INCHES AT BEGINNING OF SHIFT TO 13.25 INCHES AT OF THIS TIME, PICC WAS NOTED AT 6 CM EXPOSED AT BEGINNING OF SHIFT ASSESSMENT, IS NOTED AT 5 CM EXPOSED PRIOR TO DRESSING REMOVAL, DRESSING IS CHANGED AT THIS TIME DUE TO INCREASING EDEMA STRAINING DRESSING TO THE POINT OF LOOSENING AT SUPERIOR ASPECT OF DRESSING. EDEMA WAS DISCUSSED WITH DR HWANG, DVT TREATMENT IN PROGRESS WITH LOVENOX AND CIRCUMFERENCE MONITORING.
--- NOTE | 2020-09-06 01:30 | NUR ---
FIO2 REQUIREMENTS PT IS NOTED COUGHING AT COMPLETION OF BEDBATH/REPOSITIONING, SATS DECREASED TO 86-87%, ETT SUCTIONED AND PRODUCTIVE OF SMALL AMOUNT OF PEREZ SPUTUM, SATS CONTINUE AT 86-87% FOR 5 MINUTES POST SUCTIONING WITHOUT IMPROVEMENT NOTED, FIO2 INCREASED TO 50%, SATS IMPROVE TO 89-90% WITHIN 3 MINUTES, RT NOTIFIED OF CHANGES, WILL CONT TO MONITOR.
[2020-09-06 04:02] LABS: BASOPHILS PERCENT AUTO 1 % (0-2); EOSINOPHILS ABSOLUTE AUTO 0.36 K/mm3 (0.00-0.68); EOSINOPHILS PERCENT AUTO 3 % (0-6); Hematocrit 33.7 % (37.0-53.0); Hemoglobin 10.8 g/dL (13.5-17.5); IMMATURE GRAN ABSOLUTE AUTO 0.37 K/mm3 (0.00-0.10); IMMATURE GRAN PERCENT AUTO 3 % (0-1); LYMPHOCYTES PERCENT AUTO 13 % (21-46); MONOCYTES PERCENT AUTO 7 % (4-13); Mean Corpuscular HGB 29.5 pg (26.0-34.0); Mean Corpuscular Volume 92 fL (80-100); Mean Platelet Volume 10.8 fL (9.1-12.4); NEUTROPHILS ABSOLUTE AUTO 9.96 K/mm3 (1.96-9.15); NEUTROPHILS PERCENT AUTO 74 % (41-73); Platelet Count 378 K/mm3 (150-400); RDW Coefficient Variation 13.5 % (11.7-14.2); RDW Standard Deviation 46.3 fL (35.1-46.3); Red Blood Cell Count 3.66 M/mm3 (4.30-5.90); White Blood Cell Count 13.49 K/mm3 (4.00-11.30)
[2020-09-06 04:37] LABS: Anion Gap 6 mmol/L (6-16); Blood Urea Nitrogen 30 mg/dL (8-24); Bun/Creatinine Ratio 49.2 (12.0-20.0); CO2, Blood 27 mmol/L (21-32); Chloride, Blood 118 mmol/L (98-108); Creatinine, Blood 0.61 mg/dL (0.60-1.20); Glomerular Filtration Rate >60 (60-); Glucose, Blood 163 mg/dL (70-99); Magnesium, Blood 2.3 mg/dL (1.6-2.4); Phosphorus, Blood 3.3 mg/dL (2.5-4.9); Potassium, Blood 3.6 mmol/L (3.5-5.5); Sodium, Blood 151 mmol/L (136-145)
[2020-09-06 06:02] LABS: PCO2 Arterial 34.6 mmHg (35-45); pH Blood Arterial 7.46 (7.35-7.45)
--- NOTE | 2020-09-06 06:23 | NUR ---
PT CONTINUES SEDATED AND INTUBATED, SPONT BREATHING TRIAL THIS AM STARTED AFTER PROPOFOL WAS ON STANDBY AND PRECEDEX WAS DECREASED TO 0.7 MCG/KG/MIN FOR GREATER THAN 30 MINUTES, PER RT, PT FAILED SPONT BREATHING TRIAL FOR TACHYPNEA. FIO2 REQUIREMENTS DID INCREASE THIS SHIFT TO 50% AND SATS ARE CURRENTLY MAINTAINING LOW 90S, SEDATION WAS RESUMED PROPOFOL 60 MCG/KG/MIN AND PRECEDEX WAS MAINTAINED AT 0.7 MCG/KG/HR FOR TEN MINUTES, PT CONTINUED BREATH STACKING AND COUGHING, PRECEDEX WAS INCREASED TO 0.9 MCG/KG/HR, OF THIS TIME, PT CONTINUES WITH SPONT OPENING OF EYES HOWEVER IS NO LONGER COUGHING OR BREATH STACKING. HE DID NOT FOLLOW DIRECTIONS OR ANSWER YES/NO QUESTIONS THROUGHOUT SEDATION VACATION AND BREATHING TRIAL HOWEVER WAS NOTED TO WEAKLY MOVE ALL 4 EXTREMITIES. LEFT ARM CIRCUMFERENCE WAS NOTED TO INCREASE BY 0.25 INCHES THIS SHIFT AND EXPOSED PORTION OF PICC LINE WAS NOTED TO HAVE DECREASED PRIOR TO REMOVAL OF PREVIOUS PICC DRESSING, THIS WAS REVIEWED WITH [employer], WILL NOTIFY PICC RN THIS AM.
--- NOTE | 2020-09-06 08:30 | NUR ---
ASSUMED CARE REPORT RECIEVED. PT IS LAYING IN BED INTUBATED AND SEDATED. VENT SETTINGS AC 20, TV 450, PEEP 8, FIO2 50%. PT WITH MINIMAL ETT SECRETIONS. COUGH AND GAG PRESENT. PT OPENS EYES TO NOXIOUS STIMULI, BUT DOES NOT TRACK OR FOLLOW ANY COMMANDS. PT SEDATED WITH PROPOFOL AT 60 MCG/KG/RANDY AND PRECEDEX INCREASED TO 1.4 MCG/KG/MIN. NS INFUSING TKO. PICC TO PATITO IS POSITIONAL AND ARM IS SIGNIFICANTLY SWOLLEN. DR HWANG IS AWARE OF ARM SWELLING, MEASURED AT 33 CM AT THIS TIME. OGT IN PLACE WITH TF AT GOAL RATE. PEACOCK TEMP PROBE IN PLACE WITH YELLOW URINE OUTPUT NOTED. PT WITH LARGE AMOUNT OF LIQUID STOOL AT THIS TIME. RECTAL TUBE PLACED, PT CONTINUES TO HAVE LARGE VOLUME OF LIQUID STOOL OUTPUT. SBW RESTRAINTS IN PLACE. VITAL SIGNS STABLE. WILL CONTINUE TO MONITOR.
--- NOTE | 2020-09-06 17:58 | NUR ---
SHIFT SUMMARY NO ACUTE CHANGES THIS SHIFT. PT REMAINS INTUBATED AND SEDATED. VENT SETTINGS UNCHANGED AT AC 20, TV 450, PEEP 8, FIO2 50%. PT WITH SCANT ETT SECRETIONS WITH SUCTION. COUGH AND GAG PRESENT. PT DOES NOT FOLLOW ANY COMMANDS. PT REMAINS SEDATED WITH PROPOFOL AT 60 MCG/KG/MIN AND PRECEDEX AT 1.4 MCG/KG/MIN. PICC TO PATITO REMAINS C/D/I. SWELLING IN LEFT UPPER EXTREMITY REMAINS UNCHANGED. NS INFUSING TKO. OGT REMAINS IN PLACE WITH TF INFUSING WHILE PT IS NOT PRONED, TF ON STANDBY AT THIS TIME. PT REMAINS PRONED. OK PER DR HWANG FOR PT TO REMAIN PRONED INTO NOC SHIFT. PEACOCK TEMP PROBE REMAINS IN PLACE WITH YELLOW OUTPUT NOTED. RECTAL TUBE REMAINS IN PLACE WITH LIQUID BROWN OUTPUT NOTED. SBW RESTRAINTS REMAIN IN PLACE. VITAL SIGNS HAVE REMAINED STABLE. PT SPOUSE AND DAUGHTER UPDATED VIA PHONE TODAY. WILL CONTINUE TO MONITOR AND REPORT OFF TO ONCOMING RN.
--- NOTE | 2020-09-06 19:15 | NUR ---
ASSUMED CARE OF PT, REPORT RECEIVED. PT IS NOTED PRONE AT THIS TIME, REPOSITIONED TO [place] WITH RT AND OFFGOING RN, PT TOLERATED WELL. VENT SETTINGS AC 20, TV 450, FIO2 50% AND PEEP 8, ETT 24 CM AT LIP BOTH PRIOR TO REPOSITIONING AND AFTER COMPLETION. SATS DECREASE TO 87-88% FOLLOWING REPOSITIONING AND PT COUGHING, WILL ALLOW TIME FOR RECOVERY, DR HWANG REMAINS ON UNIT AT THIS TIME, PLAN TO INCREASE PEEP TO 10 IF PT DOES NOT RECOVER SATS TO AT LEAST 89% HRR, SINUS ON MONITOR, RATE IS NOW NOTED UPPER 60S, PRESSURE CONTINUES TO MAINTAIN STABLE, EDEMA TO LEFT ARM CONTINUES, MEASURES AT 33.5 CM AT THIS TIME, TRACE BILAT LOWER EXTREMITY EDEMA CONTINUES, BRISK CAP REFILL, SKIN PALE WARM AND DRY. TUBE FEEDING RESUMED AT COMPLETION OF REPOSITIONING, VITAL HIGH PROTEIN 1.0 AT GOAL OF 55 ML/HR, FREE WATER FLUSH INCREASED TO 200 ML EVERY 3 HOURS, WILL MONITOR. TEMP PROBE PEACOCK REMAINS IN PLACE, DRAINING CLEAR DARK YELLOW URINE TO GRAVITY TEMP IS NOTED IMPROVED TO HIGH 99S AT THIS TIME. WILL PLAN TO CONTINUE FREQUENT REPOSITIONING, TITRATE SEDATION ABLE, MONITOR RESPIRATORY STATUS AND MAINTAIN SATS AT LEAST 89% PER DR HWAGN.
[2020-09-07 02:07] LABS: Source, Urine Catheter
[2020-09-07 02:13] LABS: Bilirubin, Urine Neg (Neg); Blood, Urine 3+ (Neg); Glucose Qualitative, Urine Neg (Neg); Ketones, Urine Neg (Neg); Leukocyte Esterase, Urine Neg (Neg); Nitrite, Urine Neg (Neg); Protein, Urine 1+ (Neg); Urobilinogen, Urine NORM (Normal)
[2020-09-07 02:20] LABS: Color, Urine Yellow (P-Yellow)
[2020-09-07 02:21] LABS: Amorphous Light (0-Heavy); Appearance, Urine Hazy (Clear); Bacteria Rare /hpf; Red Blood Cells, Urine TNTC /hpf (0-2); Squamous Epithelial Cells Not Seen /hpf (Few); Uric Acid Crystals Mod /hpf; White Blood Cells, Urine Rare /hpf (0-5)
[2020-09-07 04:37] LABS: BASOPHILS ABSOLUTE AUTO 0.08 K/mm3 (0.00-0.23); BASOPHILS PERCENT AUTO 1 % (0-2); EOSINOPHILS ABSOLUTE AUTO 0.32 K/mm3 (0.00-0.68); EOSINOPHILS PERCENT AUTO 2 % (0-6); Hematocrit 35.1 % (37.0-53.0); IMMATURE GRAN ABSOLUTE AUTO 0.24 K/mm3 (0.00-0.10); IMMATURE GRAN PERCENT AUTO 2 % (0-1); LYMPHOCYTES ABSOLUTE AUTO 1.83 K/mm3 (0.84-5.20); LYMPHOCYTES PERCENT AUTO 13 % (21-46); MONOCYTES ABSOLUTE AUTO 1.04 K/mm3 (0.16-1.47); MONOCYTES PERCENT AUTO 8 % (4-13); Mean Corpuscular HGB 28.8 pg (26.0-34.0); Mean Corpuscular HGB Conc 31.3 g/dL (31.5-36.5); Mean Corpuscular Volume 92 fL (80-100); Mean Platelet Volume 10.5 fL (9.1-12.4); NEUTROPHILS ABSOLUTE AUTO 10.38 K/mm3 (1.96-9.15); NEUTROPHILS PERCENT AUTO 75 % (41-73); Platelet Count 451 K/mm3 (150-400); RDW Coefficient Variation 13.4 % (11.7-14.2); RDW Standard Deviation 45.8 fL (35.1-46.3); Red Blood Cell Count 3.82 M/mm3 (4.30-5.90); White Blood Cell Count 13.89 K/mm3 (4.00-11.30)
[2020-09-07 04:51] LABS: Anion Gap 4 mmol/L (6-16); Blood Urea Nitrogen 28 mg/dL (8-24); Bun/Creatinine Ratio 50.7 (12.0-20.0); CO2, Blood 27 mmol/L (21-32); Chloride, Blood 120 mmol/L (98-108); Creatinine, Blood 0.55 mg/dL (0.60-1.20); Glomerular Filtration Rate >60 (60-); Glucose, Blood 157 mg/dL (70-99); Magnesium, Blood 2.2 mg/dL (1.6-2.4); Phosphorus, Blood 3.5 mg/dL (2.5-4.9); Potassium, Blood 3.6 mmol/L (3.5-5.5); Sodium, Blood 151 mmol/L (136-145)
--- NOTE | 2020-09-07 05:07 | NUR ---
PT REMAINS SEDATED AND INTUBATED, PEEP INCREASED TO 10 EARLY THIS SHIFT FOLLOWED BY INCREASING FIO2 TO 60%, SATS HAVE MAINTAINED LOW TO MID 90S THROUGHOUT THE REST OF THIS SHIFT. SEDATION CONTINUES PRECEDEX AT 1.4 MCG/KG/HR AND PROPOFOL AT 60 MCG/KG/MIN, HE AROUSES TO VERBAL STIMULI, DOES MINIMALLY FOLLOW COMMANDS AT THIS POINT, WILL OPEN MOUTH WHEN INSTRUCTED FOR ORAL CARE HOWEVER DOES NOT MOVE FINGERS/TOES OR HANDS/FEET WHEN INSTRUCTED, HE HAS BEEN NOTED TO HAVE WEAK GROSS MOVEMENT INTERMITTENTLY THIS SHIFT. TUBE FEEDS CONTINUE AT GOAL WITH MINIMAL RESIDUALS THROUGHOUT NOC, SMALL AMOUNT OF LIQUID BROWN STOOL CONTINUES TO DRAIN FROM RECTAL TUBE. PEACOCK CATH WAS NOTED TO HAVE OCCLUDED AT MIDNOC ASSESSMENT, WAS UNABLE TO FLUSH TO REGAIN PATENCY, PREVIOUS PEACOCK WAS REMOVED AND REPLACED WITH 16 SCOTTISH TEMP PROBE PEACOCK, PT TOLERATED WELL, DID URINATE WITH REMOVAL OF PREVIOUS PEACOCK. WILL CONT TO MONITOR.
[2020-09-07 12:08] LABS: Vancomycin, Trough 16.8 ug/mL (5.0-10.0)
--- NOTE | 2020-09-07 19:30 | NUR ---
ASSUMED CARE OF PT, REPORT RECEIVED OUTSIDE DOOR OF ROOM. PT IS NOTED PRONED, PER OFFGOING RN THIS WAS DONE AT 1600 AND PLAN IS FOR PT TO REMAIN IN PRONE POSITION FOR 12-14 HOURS. SATS ARE NOTED LOW 90S ON MONITOR, PT APPEARS TO BE TOLERATING POSITION WELL WITH PRECEDEX REMAINING AT 1.4 MCG/KG/HR, PROPFOL IS CURRENTLY AT 50 MCG/KG/MIN, RESP RATE MID TO UPPER 20S, TIDAL VOLUMES NEAR 500 AT THIS TIME, VENT SETTINGS ARE NOTED AC 20, TV 450, FIO2 45% AND PEEP OF 10. HRR, SINUS TACH ON MONITOR, RATE 100-110S, PRESSURE IS NOTED HYPERTENSIVE WILL MONITOR. PLAN TO CONTINUE FREQUENT REPOSITIONING, DISCUSSED PLAN FOR UN PRONING PATIENT BETWEEN 04 AND 0600 WITH RESPIRATORY THERAPIST. WILL CONT TO MONITOR SEDATION AND VITAL SIGNS. MAINTAIN BED IN REVERSE [place] POSITION.
--- NOTE | 2020-09-08 01:21 | NUR ---
SPOUSE UPDATE PT'S SPOUSE CALLED, SHE STATES THAT SHE SPOKE WITH PT'S DAUGHTER VINCE THIS PM, STATES THAT SHE PROVIDED DAUGHTER WITH HIPAA PASSWORD AND THAT IT IS OK FOR DAUGHTER VINCE TO RECEIVE INFORMATION BUT NO ONE ELSE.
[2020-09-08 04:04] LABS: BASOPHILS ABSOLUTE AUTO 0.08 K/mm3 (0.00-0.23); BASOPHILS PERCENT AUTO 1 % (0-2); EOSINOPHILS ABSOLUTE AUTO 0.33 K/mm3 (0.00-0.68); EOSINOPHILS PERCENT AUTO 2 % (0-6); Hematocrit 35.3 % (37.0-53.0); Hemoglobin 10.9 g/dL (13.5-17.5); IMMATURE GRAN ABSOLUTE AUTO 0.28 K/mm3 (0.00-0.10); IMMATURE GRAN PERCENT AUTO 2 % (0-1); LYMPHOCYTES ABSOLUTE AUTO 1.57 K/mm3 (0.84-5.20); LYMPHOCYTES PERCENT AUTO 10 % (21-46); MONOCYTES ABSOLUTE AUTO 0.72 K/mm3 (0.16-1.47); MONOCYTES PERCENT AUTO 4 % (4-13); Mean Corpuscular HGB 28.6 pg (26.0-34.0); Mean Corpuscular HGB Conc 30.9 g/dL (31.5-36.5); Mean Corpuscular Volume 93 fL (80-100); NEUTROPHILS ABSOLUTE AUTO 13.37 K/mm3 (1.96-9.15); NEUTROPHILS PERCENT AUTO 82 % (41-73); Platelet Count 489 K/mm3 (150-400); RDW Coefficient Variation 13.4 % (11.7-14.2); RDW Standard Deviation 46.1 fL (35.1-46.3); Red Blood Cell Count 3.81 M/mm3 (4.30-5.90); White Blood Cell Count 16.35 K/mm3 (4.00-11.30)
[2020-09-08 04:33] LABS: Anion Gap 6 mmol/L (6-16); Blood Urea Nitrogen 25 mg/dL (8-24); Bun/Creatinine Ratio 53.8 (12.0-20.0); CO2, Blood 26 mmol/L (21-32); Chloride, Blood 120 mmol/L (98-108); Creatinine, Blood 0.47 mg/dL (0.60-1.20); Glomerular Filtration Rate >60 (60-); Glucose, Blood 170 mg/dL (70-99); Magnesium, Blood 2.2 mg/dL (1.6-2.4); Phosphorus, Blood 3.5 mg/dL (2.5-4.9); Potassium, Blood 3.3 mmol/L (3.5-5.5); Sodium, Blood 152 mmol/L (136-145)
[2020-09-08 04:54] LABS: PO2 Arterial 63.5 mmHg (80-100); pH Blood Arterial 7.39 (7.35-7.45)
--- NOTE | 2020-09-08 06:28 | NUR ---
PT TOLERATED PRONE POSITION WELL THIS SHIFT, RETURNED TO SUPINE AT 0227 THIS AM, SATS DID DECREASE TO 87-88% WITH POSITION CHANGE TO SUPINE AND FIO2 WAS INCREASED TO 50% FROM 45, SATS HAVE SINCE MAINTAINED 90-93% WITH VERY BRIEF DESATURATIONS TO 88-89% WITH COUGHING HOWEVER RECOVER WITHIN 2 MINUTES TO LOW 90S SEDATION CONTINUES PROPOFOL INFUSING AT 60 MCG/KG/MIN AND PRECEDEX AT 1.4 MCG/KG/HR, CONTINUES TO OPEN EYES TO VERBAL STIMULI, DOES NOT FOLLOW COMMANDS. LABETOLOL 10 MG IV WAS ADMINISTERED ONCE FOR HYPERTENSION WITH GOOD IMPROVEMENT NOTED IN PRESSURES. TOLERATING TUBE FEEDING AT GOAL RATE, MINIMAL RESIDUALS THROUGHOUT NOC, RECTAL TUBE REMAINS IN PLACE DRAINING BROWN LIQUID STOOL. TEMP PROBE PEACOCK REMAINS IN PLACE DRAINING DARK YELLOW URINE, SOME SEDIMENT IS NOTED. LEFT ARM SWELLING CONTINUES, HAVE MAINTAINED ELEVATION OF LEFT HAND/FOREARM SINCE PT WAS RETURNED TO SUPINE POSITION AT 0227 THIS AM.
--- NOTE | 2020-09-08 08:30 | NUR ---
ASSUMED CARE REPORT RECIEVED. PT IS LAYING IN BED INTUBATED AND SEDATED. VENT SETTINGS AC 20, TV 450, PEEP 10, FIO2 50%. PT WITH MINIMAL ETT SECRETIONS WITH SUCTION. PT IS SEDATED WITH PROPOFOL AT 60 MCG/KG/MIN AND PRECEDEX AT 1.4 MCG/KG/MIN. PT GRIMMACES TO NOXIOUS STIMULI. COUGH AND GAG PRESENT. PT DOES NOT FOLLOW ANY COMMANDS AT THIS TIME. SBW RESTRAINTS IN PLACE. OGT IN PLACE WITH TF AT GOAL RATE. PICC TO PATITO C/D/I. LEFT ARM SWELLING NOTED. PEACOCK TEMP PROBE IN PLACE WITH DARK YELLOW URINE OUTPUT NOTED. RECTAL TUBE IN PLACE WITH LIQUID BROWN OUTPUT NOTED. VITAL SIGNS STABLE. WILL CONTINUE TO MONITOR.
--- NOTE | 2020-09-08 12:24 | NUR ---
Case Conference Note Spoke with Dr Baker and Bedside RN Jose. Discussed case and concerns. Pt on day 10 of intubation. Pt's respiratory status has declined today. Family would benefit from discussion regarding trach. Called and spoke with Pt's spouse Farzaneh. Provided update and engaged in therapeutic discussion regarding goals of care. Discussed the importance of considering Pt's wishes for trach. Farzaneh tends to focus on the antibiotics and is requesting for care team to try different antibiotics. Continued therapeutic listening and answered questions. Farzaneh appears to have a low understanding, some of which could be related to language barrier. Re-enforced education regarding the potential for trach at day number 14 and Pt's wishes regarding this. Called and spoke with Pt's daughter Dionna. Provide update and discussed the potential need of trach pending Pt's wishes or spouse's decision. Engaged in theraeutic conversaton regarding spouse's level of understanding. Dionna reports understanding is influenced by low education level and possibly language barrier. Dionna reports spouse's primary language is heron. She suggests offering phone pilot captain. Continued therapeutic listening. Dionna expresses appreciation of call and reports no other concerns at this time. Called and left message with spouse Farzaneh offering phone pilot captain and request for return phone call. Palliative Care will remain available.
--- NOTE | 2020-09-08 13:00 | NUR ---
PT REQUESTING TRANSFER DR GOMEZ ON PHONE TO UPDATE PT SPOUSE OF CURRENT CONDITION AND PLAN OF CARE. PT SPOUSE INFORMED DR GOMEZ THAT SHE HAS STARTED TO CALL OTHER HOSPITALS TO HAVE PT TRANSFERED. WITH RESPECT TO PT SPOUSE'S WISHES, DR GOMEZ INITIATED TRANSFER WITH [facility]. AWAITING ACCEPTING PHYSICIAN AND BED AT THIS TIME.
--- NOTE | 2020-09-08 16:22 | NUR ---
TRANSFER TO [facility] SPOKE TO REACH COORDINATOR FOR TRANSFER OF [facility]. PER REACH TEAM PT NEEDS TO SPEAK TO THEIR NURSE COORDINATOR TO ARRANGE PAYMENT AND ADDITIONAL INFORMATION PRIOR TO ACCEPTING TRANSFER. PT NOTIFIED AND PHONE NUMBER PROVIDED TO HER. AWAITING CALL BACK FROM [facility]. [facility] TRANSFER TEAM NOTIFIED.
--- NOTE | 2020-09-08 17:26 | NUR ---
SHIFT SUMMARY NO ACUTE CHANGES THIS SHIFT. PT REMAINS INTUBATED AND SEDATED. VENT SETTINGS AC 20, TV 450, PEEP 10, FIO2 55%. PT REMAINS WITH MINIMAL ETT SECRETIONS. PT REMAINS SEDATED WITH PROPOFOL AT 60 MCG/KG/MIN AND PRECEDEX AT 1.4 MCG/KG/MIN. PT GRIMMACES WITH NOXIOUS STIMULI, COUGH AND GAG REMAIN PRESENT. PT DOES NOT FOLLOW DIRECTIONS. OGT IN PLACE WITH TF INFUSING AT GOAL RATE. PICC TO PATITO REMAINS C/D/I, SWELLING TO LEFT ARM UNCHANGED. PEACOCK REMAINS IN PLACE WITH DARK YELLOW OUTPUT NOTED. RECTAL TUBE REMAINS IN PLACE WITH LIQUID BROWN OUTPUT NOTED. SBW RESTRAINTS REMAIN IN PLACE. VITAL SIGNS REMAIN STABLE. PENDING TRANSFER TO [facility] AT THIS TIME. WILL CONTINUE TO MONITOR.
--- NOTE | 2020-09-08 19:00 | NUR ---
ASSUMED CARE ASSUMED CARE OF PATIENT. REMAINS INTUBATED- AC 20, TV 450, PEEP 10, FIO2 60%.RR MID-20s. SEDATED WITH PROPOFOL @ 60MCG/KG/MIN AND PRECEDEX @ 1.4MCG/KG/HR. MOVES ALL EXTREMITIES. NOT FOLLOWING ANY COMMANDS. BILATERAL SOFT WRIST RESTRAINTS IN PLACE. MONITOR SHOWS SR, RATE 80s. 100.9F VIA PEACOCK TEMP PROBE. OG WITH VHP AT 45CC/HR. 300CC H20 FLUSH Q3H. PEACOCK PATENT AND DRAINING. RECTAL TUBE IN PLACE WITH LIQUID STOOL. PLAN IS TO TRANSFER PATIENT TO [facility] THIS EVENING. AWAITING CALL FROM [facility].
--- NOTE | 2020-09-08 20:50 | NUR ---
TRANSFER PT LEFT UNIT AT 2039 WITH REACH. REPORT GIVEN TO NEGAR LIZ IN [facility] ICU AT THIS TIME. DAUGHTER, VINCE, CALLED FOR UPDATE- UPDATE GIVEN.
== END 2020-09-08 20:40 | disposition short-term general hospital (02) | DRG 870 ==
LOC: ER 17:24 → ICUW 22:28
PROVIDERS: Emergency Medicine; Internal Medicine Critical Care Medicine; Internal Medicine Pulmonary Disease; Nurse Practitioner Acute Care; Physician Assistant; Student in an Organized Health Care Education/Training Program; ADMIT Internal Medicine
PROC: 5A1955Z Respiratory Ventilation, Greater than 96 Consecutive Hours (ICD-10-PCS; 2020-08-29)
PROC: 0BH18EZ Insertion of Endotracheal Airway into Trachea, Via Natural or Artificial Opening Endoscopic (ICD-10-PCS; 2020-08-29)
PROC: XW033E5 Introduction of Remdesivir Anti-infective into Peripheral Vein, Percutaneous Approach, New Technology Group 5 (ICD-10-PCS; 2020-08-29)
PROC: 02HV33Z Insertion of Infusion Device into Superior Vena Cava, Percutaneous Approach (ICD-10-PCS; principal; 2020-08-30)
PROC: 5A09357 Assistance with Respiratory Ventilation, Less than 24 Consecutive Hours, Continuous Positive Airway Pressure (ICD-10-PCS; 2020-08-30)
PROC: XW033E5 Introduction of Remdesivir Anti-infective into Peripheral Vein, Percutaneous Approach, New Technology Group 5 (ICD-10-PCS; 2020-08-30)
PROC: XW033E5 Introduction of Remdesivir Anti-infective into Peripheral Vein, Percutaneous Approach, New Technology Group 5 (ICD-10-PCS; 2020-08-31)
PROC: XW033E5 Introduction of Remdesivir Anti-infective into Peripheral Vein, Percutaneous Approach, New Technology Group 5 (ICD-10-PCS; 2020-09-01)
DX: A41.89 Other specified sepsis (principal); U07.1 COVID-19; J12.89 Other viral pneumonia; J96.01 Acute respiratory failure with hypoxia; R65.21 Severe sepsis with septic shock; N39.0 Urinary tract infection, site not specified; E87.0 Hyperosmolality and hypernatremia; I82.622 Acute embolism and thrombosis of deep veins of left upper extremity; B37.0 Candidal stomatitis; I10 Essential (primary) hypertension; E87.6 Hypokalemia; F41.9 Anxiety disorder, unspecified; R73.9 Hyperglycemia, unspecified
CPT/HCPCS: 31500; 31720; 36415; 36430; 36569; 36600; 51701; 71045; 80048; 80053; 80202; 81001; 82330; 82728; 82803; 82947; 83605; 83735; 83880; 84100; 84145; 84484; 85014; 85018; 85025; 85027; 85045; 85379; 85610; 85730; 86140; 86850; 86900; 86901; 87040; 87070; 87077; 87086; 87186; 87205; 93005; 93010; 94002; 94003; 94640; 94660; 96365; 96367; 96368; 96375; 99282; 99285-25; A9270; A9270-GY; C1751; C1769; C9113; J0456; J0696; J1100; J1450; J1650; J1815; J1940; J2060; J2543; J2704; J3010; J3370; J3480; J7030; J7050; J7060